=== PATIENT | male | born 1945 | race Caucasian/White ===

== ENCOUNTER 2021-11-03 15:36 | Emergency (ER) | payer MEDICARE ==
[~2021-11-03] VITALS: Ht 177.8 cm; Wt 84.1 kg
[2021-11-03 15:58] VITALS: BP 113/82
== END 2021-11-03 18:07 | disposition home or self-care (01) ==
LOC: ED 15:36
DX: K59.00 Constipation, unspecified (principal); I10 Essential (primary) hypertension; E11.9 Type 2 diabetes mellitus without complications; F17.200 Nicotine dependence, unspecified, uncomplicated